=== PATIENT | male | born 1965 | race Caucasian/White ===

== ENCOUNTER 2018-07-23 15:53 | Outpatient (CLI) | payer BC ==
--- NOTE | 2018-07-23 18:18 | RAD ---
LUMBAR SPINE FOUR VIEWS: 07/23/18 HISTORY: Low back pain x25 years. COMPARISON: None. FINDINGS: Five lumbar type vertebral bodies. Vertebral height is maintained. There is no fracture. Vacuum disc phenomenon and moderate to severe loss of disc space height at L5-S1. Mild degenerative changes of th e thoracolumbar junction. In the neutral position, no spondylolisthesis. No abnormal motion on extension or flexion. IMPRESSION: Vacuum disc phenomenon at L5-S1. POS: MIC
== END 2018-07-23 15:54 | disposition home or self-care (01) ==
LOC: TBSIIMAG 15:53
PROVIDERS: ATTEND Surgery
DX: M54.5 Low back pain (principal); M51.37 Other intervertebral disc degeneration, lumbosacral region
CPT/HCPCS: 72110

== ENCOUNTER 2018-09-29 08:20 | Outpatient (CLI) | payer BC ==
[2018-09-29 09:37] LABS: Hemoglobin 14.2 g/dL (14.0-18.0); Mean Corpuscular HGB CONC 33.1 g/dL (32.0-36.0); Mean Corpuscular Hemoglobin 31.1 pg (27.0-31.0); Mean Corpuscular Volume 93.9 fL (78.0-98.0); Mean Platelet Volume 7.6 fL (7.4-10.4); Platelet Count 255 thou/uL (130-400); RBC Distribution Width 12.6 % (11.5-14.5); Red Blood Cell (RBC) Count 4.56 mill/uL (4.70-6.10); White Blood Cell (WBC) Count 5.7 thou/uL (4.8-10.8)
[2018-09-29 09:53] LABS: Anion Gap 11 mmol/L (10-20); BUN (Urea Nitrogen) 18 mg/dL (8.4-25.7); Calc. Creatinine Clearance 0 mL/min (70-130); Calcium 9.4 mg/dL (7.8-10.44); Carbon Dioxide 28 mmol/L (22-29); Chloride 106 mmol/L (98-107); Estimated GFR-MDRD Greater than 90; Glucose 73 mg/dL (70-105); PTT 27.2 SEC (22.9-36.1); Prothrombin Time 12.9 SEC (12.0-14.7); Sodium 141 mmol/L (136-145)
== END 2018-09-29 08:21 | disposition home or self-care (01) ==
LOC: LABBT 08:20
PROVIDERS: ATTEND Surgery
DX: Z01.818 Encounter for other preprocedural examination (principal); M54.16 Radiculopathy, lumbar region; M48.061 Spinal stenosis, lumbar region without neurogenic claudication
CPT/HCPCS: 80048; 85027; 85610; 85730; 93005; 93010

== ENCOUNTER 2018-10-03 09:55 | Day surgery (SDC) | payer BC ==
[2018-09-29 08:30] VITALS: BMI 36.3
[2018-10-03] MEDS ORDERED: Levofloxacin 500 mg/D5W 100 ml Premix Bag ONE (12:23)
[2018-10-03] MEDS ORDERED: Clindamycin/D5W 900 mg/50 ml Premix Bag ONE (12:24)
[2018-10-03] MEDS ORDERED: Midazolam HCl 2 mg/2 ml Vial ONE (12:35)
[2018-10-03] MEDS ORDERED: Morphine 2 MG/ML SYRINGE ONE (12:35)
[2018-10-03] MEDS ORDERED: Bacitracin Zinc Ointment 30 gm TUBE ONE (13:09)
[2018-10-03] MEDS ORDERED: Sodium Chloride 0.9% 10 ML ONE (13:09)
[2018-10-03] MEDS ORDERED: Thrombin 5000 UNITS/5 ML VIAL ONE (13:09)
[2018-10-03] MEDS ORDERED: Fentanyl 100 MCG/2 ML VIAL ONE ×5 (13:13→18:23)
[2018-10-03] MEDS ORDERED: Fleet Enema 133 ML BOT PR PRN (16:45)
[2018-10-03] MEDS ORDERED: Milk Of Magnesia 30 ML UDCUP PO PRN (16:45)
[2018-10-03] MEDS ORDERED: Acetaminophen 325 MG TAB PO PRN (16:45)
[2018-10-03] MEDS ORDERED: Bisacodyl 10 MG SUPP PR PRN (16:45)
[2018-10-03] MEDS ORDERED: Promethazine HCl 25 MG/ML VIAL IM PRN ×2 (16:45→17:30)
[2018-10-03] MEDS ORDERED: Mag-Al 1200 mg/1200 mg/30 ML UDCUP PO PRN (16:45)
[2018-10-03] MEDS ORDERED: Ondansetron HCl/PF 4 MG/2 ML Vial IVP PRN (17:30)
[2018-10-03] MEDS ORDERED: Promethazine HCl 25 MG/ML VIAL SLOW IVP PRN (17:30)
[2018-10-03] MEDS: traMADol HCl 50 MG TAB PO PRN (19:53)
[2018-10-03] MEDS: Acetaminophen/Codeine 30-300mg Tablet PO PRN (19:53)
[2018-10-03] MEDS: Sodium Chloride 0.9% 1,000 ML IV SCH (19:57)
[2018-10-03] MEDS: Metoprolol Tartrate 25 MG TAB PO SCH (20:31)
[2018-10-03] MEDS: Clindamycin/D5W 900 MG in Premix Bag 1 BAG IVPB SCH (20:31)
[2018-10-03] MEDS ORDERED: Lorazepam 1 MG TAB PO SCH (21:00)
[2018-10-03] MEDS ORDERED: PHENYLEPHRINE-NS 100 MCG/ML 10 ML SYRINGE ONE (21:37)
[2018-10-03] MEDS ORDERED: Metoclopramide HCl 10 MG/2 ML VIAL ONE (21:37)
[2018-10-03] MEDS ORDERED: PROPOFOL 200 MG/20 ML VIAL ONE (21:37)
[2018-10-03] MEDS ORDERED: Ondansetron PF 4 MG/2 ML Vial ONE (21:37)
[2018-10-03] MEDS ORDERED: Dexamethasone 20 MG/5 ML VIAL ONE (21:37)
[2018-10-03] MEDS ORDERED: Lidocaine 1% PF 5 ML VIAL ONE (21:37)
[2018-10-03] MEDS ORDERED: Succinylcholine Chloride 20 MG/ML 10 ml SYRINGE FS ONE (21:37)
[2018-10-03] MEDS ORDERED: ePHEDrine/0.9% NaCl/PF SYRINGE 50 mg/10 ml ONE (21:37)
[2018-10-03] MEDS ORDERED: Glycopyrrolate 0.2 MG/ML 5 ML SYRINGE ONE (21:37)
[2018-10-03] MEDS ORDERED: Naloxone HCl 0.4 mg/ml Vial ONE (21:37)
[2018-10-03] MEDS: Morphine 4 MG/ML VIAL SLOW IVP PRN (23:19)
[2018-10-04] MEDS: Acetaminophen/Codeine 30-300mg Tablet PO PRN ×2 (00:09→06:09)
[2018-10-04] MEDS: HYDROcodone/Acetaminophen 7.5/325 mg Tablet PO PRN ×3 (00:10→08:05)
[2018-10-04] MEDS: traMADol HCl 50 MG TAB PO PRN (03:36)
[2018-10-04] MEDS: Morphine 4 MG/ML VIAL SLOW IVP PRN (04:15)
[2018-10-04] MEDS: Clindamycin/D5W 900 MG in Premix Bag 1 BAG IVPB SCH (06:09)
[2018-10-04] MEDS: Sodium Chloride 0.9% 1,000 ML IV SCH (06:09)
[2018-10-04 07:29] VITALS: BP 124/71; TEMP 97.9
[2018-10-04] MEDS: Metoprolol Tartrate 25 MG TAB PO SCH (08:05)
[2018-10-04] MEDS ORDERED: Potassium Chloride 8 MEQ TAB PO SCH (09:00)
[2018-10-04] MEDS ORDERED: Lisinopril/Hydrochlorothiazide 20/25 mg Tablet PO SCH (09:00)
[2018-10-04] MEDS ORDERED: Venlafaxine HCl XR 150 MG CAP PO SCH (09:00)
--- NOTE | 2018-10-04 11:59 | PRG ---
DATE OF SERVICE: 10/04/2018 Mr. Elizabeth is postop day 1 from L4-L5 right-sided diskectomy and left L5-S1 hemilaminotomy, foraminotomy, and diskectomy. He is doing well with improvement in his leg pain. He is mobilizing with good strength. We will plan on dismissal. We went over both intra and postoperative issues. Job ID: [id number]
--- NOTE | 2018-10-04 13:16 | OP ---
DATE OF PROCEDURE: 10/03/2018 MANUFACTURING ENGINEERING DIRECTOR: Asad Hong PA-C. PREPROCEDURE DIAGNOSES: Lumbar stenosis L4-L5 with right L4-L5 disk extrusion, left L5-S1 disk extrusion with left S1 radiculopathy. POSTPROCEDURE DIAGNOSES: Lumbar stenosis L4-L5 with right L4-L5 disk extrusion, left L5-S1 disk extrusion with left S1 radiculopathy. PROCEDURES PERFORMED: 1. L4-L5 laminectomy, partial facetectomy, and foraminotomy with right-sided L4-L5 diskectomy. 2. Left L5-S1 hemilaminotomy, foraminotomy, and diskectomy. 3. Use of operative microscope for microdissection. DESCRIPTION OF PROCEDURE: After informed consent was obtained from the patient, the patient was brought to OR. Proper patient pause and identification were carried out. He was placed under excellent general endotracheal anesthesia and positioned prone on the OR table. All appropriate points were padded. We identified the L4, L5, and S1 dorsal spines. A linear ike was made over this area. This region was sterilely cleansed, prepared, and draped. After proper patient pause and identification were carried out, L4-L5 region was then exposed. Laminectomy was performed with right-sided L4-L5 diskectomy and excellent decompression of right L5 nerve root. We then turned our attention to the left L5-S1 segment. Hemilaminotomy, foraminotomy, and diskectomy were performed there. Use of operative microscope was used for microdissection. Copious irrigation occurred throughout and maximized hemostasis well. We then closed the wound in anatomic layers following sprinkling of vancomycin powder. The patient then emerged from anesthesia. Job ID: [id number]
== END 2018-10-04 11:41 | disposition home or self-care (01) ==
LOC: SDC 09:55 → SURG B 16:45 → SDC 10-04 11:41
PROVIDERS: ATTEND Surgery
PROC: 01NB0ZZ Release Lumbar Nerve, Open Approach (ICD-10-PCS; principal; 2018-10-04)
PROC: 0SB20ZZ Excision of Lumbar Vertebral Disc, Open Approach (ICD-10-PCS; principal; 2018-10-04)
DX: M48.061 Spinal stenosis, lumbar region without neurogenic claudication (principal); M51.26 Other intervertebral disc displacement, lumbar region; M51.17 Intervertebral disc disorders with radiculopathy, lumbosacral region; Z79.82 Long term (current) use of aspirin; Z79.899 Other long term (current) drug therapy; Z91.048 Other nonmedicinal substance allergy status
CPT/HCPCS: 76001; 96374; J0131; J1100; J1956; J2001; J2250; J2270; J2310; J2405; J2704; J2765; J3010; J3370; J3490

== ENCOUNTER 2018-10-04 18:38 | Observation (INO) | payer BC ==
[2018-10-04] MEDS ORDERED: Ketorolac Tromethamine 30 MG/ML VIAL ONE (21:37)
[2018-10-04] MEDS ORDERED: Milk Of Magnesia 30 ML UDCUP PO PRN (22:12)
[2018-10-04] MEDS ORDERED: Mag-Al 1200 mg/1200 mg/30 ML UDCUP PO PRN (22:12)
[2018-10-04] MEDS ORDERED: Ondansetron PF 4 MG/2 ML Vial IVP PRN (22:12)
[2018-10-04] MEDS ORDERED: Bisacodyl 10 MG SUPP PR PRN (22:12)
[2018-10-04] MEDS ORDERED: Fleet Enema 133 ML BOT PR PRN (22:12)
[2018-10-04] MEDS ORDERED: Sodium Chloride 0.9% 1,000 ML IV SCH (22:15)
[2018-10-04] MEDS: Ketorolac Tromethamine 30 MG/ML VIAL IVP SCH (23:22)
[2018-10-04] MEDS: Acetaminophen 650 MG in Premix Bag 1 BAG IVPB SCH (23:22)
--- NOTE | 2018-10-05 00:29 | HP ---
This is a 30-minute initial patient evaluation, of which greater than 50% of the exam was spent in counseling and coordinating the patient's care. Remainder of the exam was spent in reviewing the patient's medical records and formulation of treatment plan. CHIEF COMPLAINT: Slurred speech with dizziness. HISTORY OF PRESENT ILLNESS: Mr. Elizabeth is a 53-year-old male, who re-presented to [facility] for the above complaints. The patient had lumbar spine surgery with Dr. Andersen yesterday and was discharged earlier today. Apparently, when he was picking up his postoperative medications, he states that he was told that he was able to take tizanidine, tramadol, and Tylenol with codeine at the same time. He did this with dinner and subsequently began to feel lightheaded, had several episodes of diarrhea and slurred speech. He states he did also feel slight amount of chest pain. As these did not improve and his level of consciousness was deteriorating, he called 911 and was subsequently emergently brought to [facility]. Currently, his oxygen level is normal. He does have some hypotension, although the last blood pressure read in the room was in the 100s over 60s. His slurred speech has since resolved. He is able to provide the majority of his history. His accompanies him at bedside. The patient notes some incisional back pain and intermittent leg pain similar to what he had postoperatively, but states overall this has improved. PHYSICAL EXAMINATION: The patient is awake, alert, and appropriate. He no longer has any type of slurred speech during the exam. Follows commands equally in all 4 extremities. He has good strength in the bilateral lower extremities. He has intact sensation to light touch throughout. His pupils are equal, round, and reactive bilaterally. GCS currently is 15. IMPRESSION AND DIAGNOSES: Status post lumbar laminectomy on 10/03/2018 with slurred speech and decreased level of consciousness, likely narcotic-related. PLAN: I have discussed the patient's case with Dr. Andersen. I have discussed with the patient proper medication dosage and we will admit him overnight again for observation. We will keep an eye on his oxygenation level. He will hopefully be discharged tomorrow, but tonight we will limit his narcotics since he had some hypotension episodes. Overall, I think the patient will do very well in regard to low back surgery recovery as well as this likely narcotic overdose. Again, we will provide some fluids and adequate pain control for him and hopefully limit all his narcotics. Please call with any changes in the patient's neurologic status. Job ID: [id number]
[2018-10-05 01:14] VITALS: BMI 38.0
[2018-10-05] MEDS: Acetaminophen 650 MG in Premix Bag 1 BAG IVPB SCH (05:42)
[2018-10-05] MEDS: Ketorolac Tromethamine 30 MG/ML VIAL IVP SCH (05:43)
[2018-10-05] MEDS ORDERED: Venlafaxine HCl XR 150 MG CAP PO SCH (09:00)
[2018-10-05] MEDS ORDERED: Metoprolol Tartrate 25 MG TAB PO SCH (09:00)
[2018-10-05] MEDS ORDERED: Lisinopril/Hydrochlorothiazide 20/25 mg Tablet PO SCH (09:00)
[2018-10-05] MEDS ORDERED: Potassium Chloride 8 MEQ TAB PO SCH (09:00)
[2018-10-05 11:45] VITALS: BP 127/77; TEMP 98.1
--- NOTE | 2018-10-05 12:41 | PRG ---
DATE OF SERVICE: DICTATING FOR: Good Andersen MD SUBJECTIVE: Mr. Elizabeth is on hospital day #1, having been readmitted for some altered mental status and slurred speech after taking several narcotics and muscle relaxant the same time. His slurred speech has now resolved. He has met criteria for discharge, as his blood pressure has remained within normal limits. Oxygen saturation has been at 96% on room air, and now his hypertension has resolved. He is afebrile. I have discussed appropriate narcotic and muscle relaxant usage, and I have asked him to avoid these as much as possible and again not to take them at the same time. If he can avoid taking any type of narcotics, that would be ideal, although he does know taking Magdalena with benadryl does not provide any type of sedation for him. Therefore, he was to use Tylenol, Advil, Magdalena with benadryl as directed and . Otherwise, he has good strengths in bilateral lower extremities with intact sensation to light touch throughout. Again, he will keep his followup appointment with our office as scheduled and understands to call the office with questions or concerns. He will be discharged today. Job ID: [id number]
== END 2018-10-05 11:45 | disposition home or self-care (01) ==
LOC: ERS 18:38 → SURG B 22:12
PROVIDERS: ADMIT Surgery; ATTEND Surgery
DX: I95.81 Postprocedural hypotension (principal); R47.81 Slurred speech; Z79.82 Long term (current) use of aspirin; Z79.899 Other long term (current) drug therapy; Z91.09 Other allergy status, other than to drugs and biological substances; Z98.890 Other specified postprocedural states
CPT/HCPCS: 93005; 94760; 96361; 96374; 96375; 96376; G0378; J0131; J1885

== ENCOUNTER 2020-09-24 17:53 | Observation (INO) | payer BC ==
[2020-09-24] MEDS ORDERED: HYDROmorphone 0.5 MG/0.5 ML SYRINGE ONE ×2 (18:45→23:16)
[2020-09-24 19:15] LABS: Bilirubin Negative (Negative); Blood, Urine Negative (Negative); Clarity Clear (Clear); Glucose, Urine (Dipstick) Normal (Negative); Ketone, Urine Negative (Negative); Leukocyte Negative Leu/uL (Negative); Nitrite Negative (Negative); Protein, Urine (Dipstick) 20 mg/dL (Neg-Trace); Specific Gravity, Urine 1.037 (1.002-1.036); pH, Urine 7.5 (5.0-9.0)
[2020-09-24] MEDS ORDERED: cloNIDine 0.1 MG TAB PO PRN (20:02)
[2020-09-24] MEDS ORDERED: Morphine 2 MG/ML VIAL SLOW IVP PRN (20:02)
[2020-09-24] MEDS ORDERED: Acetaminophen 325 MG TAB PO PRN (20:02)
[2020-09-24] MEDS ORDERED: Ondansetron PF 4 MG/2 ML Vial IVP PRN (20:02)
[2020-09-24] MEDS ORDERED: Promethazine HCl 12.5 MG in Sodium Chloride 0.9% 50 ML IVPB PRN (20:02)
[2020-09-24] MEDS ORDERED: Labetalol HCl 100 MG/20 ML VIAL SLOW IVP PRN (20:02)
[2020-09-24] MEDS ORDERED: Guaifenesin DM 100-10/5 ML UDCUP PO PRN (20:02)
[2020-09-24] MEDS ORDERED: Naloxone HCl 0.4 mg/ml Vial IV PRN (20:38)
[2020-09-24] MEDS ORDERED: HYDROmorphone 0.5 MG/0.5 ML SYRINGE SLOW IVP PRN (20:38)
[2020-09-24] MEDS ORDERED: Methocarbamol 1 GM in Sodium Chloride 0.9% 100 ML IVPB PRN (20:39)
[2020-09-24] MEDS ORDERED: Morphine 4 MG/ML VIAL SLOW IVP PRN (20:39)
[2020-09-24] MEDS ORDERED: ALPRAZolam 0.25 MG TAB PO PRN (20:43)
--- NOTE | 2020-09-24 20:44 | PDOC.HHP ---
Hospitalist HPI - History of Present Illness Back pain History of Present Illness: Patient is a 55 year old male with PMH HTN, atrial fibrillation, disk disease w/ history of spinal surgery who presents as ED to ED transfer from [place] to ED for intractable back pain. # intractable back pain # history of disk disease w/ distant spinal surgery by Dr Andersen # severe right neural foraminal narrowing, moderate left neuroforaminal narrowing, mild spinal canal narrowing, moderate to severe bilateral neural foraminal narrowing at L5-S1 secondary to endplates osteophyte formation, mild degenerative changes to the vertebral discs above L4-5 - patient with progressive groin/leg pain and numbness and MRI w/ signs of disk disease and spinal cord narrowing, went to ED 4 times this week, patient has had a CT lumbar spine, CT a/p stone protocol, MRI of L spine. The MRI revealed right posterior central disc extrusion causing severe right neural foraminal narrowing amongst numerous other spinal findings. bladder scan in ED negative for retention. His pain is improved mostly after dilaudid. Neurosurgery consulted by ED and will follow patient with us as consult service. Patient transferred here from [place] [facility]. - admit to telemetry - start scheduled toradol/gabapentin and PRN norco, robaxin, morphine, dilaudid for breakthrough if needed - start empiric decadron - PT/OT # atrial fibrillation - medications changed last few weeks, now on multaq, toprol XL and 325mg asa for atrial fibrillaiton, monitor on telemetry and follow final med rec to ensure doses of medications are correct # HTN - resume home medications once med rec is complete, PRN medications ordered DVT/GI ppx Hospitalist ROS - Review of Systems Constitutional: denies: fever, chills, sweats, weakness, malaise, other Eyes: denies: pain, vision change, conjunctivae inflammation, eyelid inflammation, redness, other ENT: denies: ear pain, ear discharge, nose pain, nose discharge, nose congestion, mouth pain, mouth swelling, throat pain, throat swelling, other Respiratory: denies: cough, dry, shortness of breath, hemoptysis, SOB with excertion, pleuritic pain, sputum, wheezing, other Cardiovascular: denies: chest pain, palpitations, orthopnea, paroxysmal noc. dyspnea, edema, light headedness, other Gastrointestinal: denies: nausea, vomiting, abdominal pain, diarrhea, constipation, melena, hematochezia, other Genitourinary: denies: dysuria, frequency, incontinence, hematuria, retention, other Musculoskeletal: reports: back pain, leg pain Neurological: reports: numbness (RLE, see HPI) All other systems reviewed; all pertinent +/- noted in HPI/Subj - Medication Medications: LORazepam oral Sat Sep 24, 2020 18:22 BIANKA Jeffries Elizabeth TABLET : Strength - 1 mg : ORAL Patient Dose: 1 mg Oral every 6 hours PRN. venlafaxine Sat Sep 24, 2020 18:22 BIANKA Jeffries Elizabeth TABLET : Strength - 100 mg : ORAL Patient Dose: 150 mg Oral once a day. lisinopril-hydrochlorothiazide Sat Sep 24, 2020 18:22 BIANKA Jeffries Elizabeth TABLET : Strength - 20 mg-25 mg : ORAL Patient Dose: 1 tab(s) Oral once a day. Benadryl oral Sat Sep 24, 2020 18:23 BIANKA Jeffries Elizabeth CAPSULE : Strength - 25 mg : ORAL Patient Dose: 25 mg Oral. acetaminophen-codeine Sat Sep 24, 2020 18:23 BIANKA Jeffries Elizabeth TABLET : Strength - 300 mg-60 mg : ORAL Patient Dose: Unknown. Ultram Sat Sep 24, 2020 18:23 BIANKA Jeffries Elizabeth TABLET : Strength - 50 mg : ORAL Patient Dose: Unknown. meTOPROLOL tartrate oral Sat Sep 24, 2020 20:19 BIANKA Sandoval Miranda TABLET : Strength - 100 mg : ORAL Patient Dose: 25 mg Oral once a day (at bedtime). Multaq Sat Sep 24, 2020 20:19 BIANKA Sandoval Miranda tablet : Strength - 400 mg : ORAL Patient Dose: 1 2 times a day. Hospitalist History - Past Medical History Psych: reports: Anxiety Musculoskeletal: reports: Chronic low back pain, Osteoarthritis Renal/: reports: Other (History of kidney stones) Endocrine: reports: Other (Obesity) Other Medical History: HTN atrial fibrillation - Past Surgical History Past Surgical History: reports: Other (Multiple knee surgeries bilaterally, kidney stone removal) Other Surgical History: Left ankle surgery LEFT KNEE X 5 RIGHT KNEE X4. Back surgery 10/03/18.verified 09-22-2020. - Family History Family History: reports: no pertinent history - Social History Alcohol: reports: Occassional Drugs: reports: none - Exam General Appearance: NAD, awake alert Eye: PERRL, anicteric sclera ENT: normocephalic atraumatic, no oropharyngeal lesions, moist mucosa Neck: supple, symmetric, no JVD, no thyromegaly, no lymphadenopathy, no carotid bruit Heart: RRR, no murmur, no gallops, no rubs, normal peripheral pulses Respiratory: CTAB, no wheezes, no rales, no ronchi, normal chest expansion, no tachypnea, normal percussion Gastrointestinal: soft, non-tender, non-distended, normal bowel sounds, no palpable masses, no hepatomegaly, no splenomegaly, no bruit Extremities: no cyanosis, no clubbing, no edema Skin: normal turgor, no lesions, no rashes Neurological: cranial nerve grossly intact, normal sensation to touch, no weakness, no focal deficits, no new deficit Neurological - other findings: sensation RLE reduced to light and heavy touch. LLE/BUE wnl, rflx 2+ equal Musculoskeletal: normal tone, normal strength, no muscle wasting Psychiatric: normal affect, normal behavior, A&O x 3 Hospitalist Results - Labs Lab results: Urine Ketones Negative mg/dL (Negative) 09/24/20 18:40 Urine Blood Negative (Negative) 09/24/20 18:40 Urine Nitrite Negative (Negative) 09/24/20 18:40 Ur Leukocyte Esterase Negative Shekhar/uL (Negative) 09/24/20 18:40 Additional comment: VITAL SIGNS Sat Sep 24, 2020 20:33 BIANKA Alvarez Taylor BP: 129/85 MAP: 99 Pulse: 81 Resp: 15 Pain: 7 O2 sat: 95 on (Room Air) Time: 09/24/2020 20:33. MRI from 09/23/2020 IMPRESSION: 1. Postsurgical changes status post L5 laminectomy. No obvious acute postsurgical complication. 2. Right posterior central disc extrusion causing severe right neural foraminal narrowing, moderate left neuroforaminal narrowing, and only mild spinal canal narrowing. 3. Moderate to severe bilateral neural foraminal narrowing at L5-S1 secondary to endplates osteophyte formation, most severe on the right. 4. Mild degenerative changes to the vertebral discs above L4-5 with mild to moderate neuroforaminal narrowing and at most minimal spinal canal narrowing. Hospitalist H&P A/P - Plan Plan: Patient is a 55 year old male with PMH HTN, atrial fibrillation, disk disease w/ history of spinal surgery who presents as ED to ED transfer from [place] to ED for intractable back pain. Patient reports that he has had pain in back which has been worsening for a few weeks, however this week he noted concerning significant RLE numbness mostly in thigh region. He denies BBI but has difficulty urinating due to pain. He has seen Dr Andersen in the past for multiple spinal surgeries and notified their office of new symptoms. He has been to the ED 4 times in last few days, however pain has not responded to prednisone started yesterday nor ibuprofen/tylenol 3 or muscle relaxers he was prescribed. His reports pain was so bad he was forced to lie down and was writhing in pain in groin area mostly. He has afib, and medications were changed two weeks ago, he is now on toprol XR and multaq. Grader Operator is Dr Ramos. He takes ASA 325mg daily for afib stroke prevention. In process of going to [facility] x 4 this week, patient has had a CT lumbar spine, CT a/p stone protocol, MRI of L spine. The CTs did not show acute findings, the MRI revealed right posterior central disc extrusion causing severe right neural foraminal narrowing amongst numerous other spinal findings. bladder scan in ED negative for retention. His pain is improved mostly after dilaudid. Neurosurgery consulted by ED and will follow patient with us as consult service. Patient transferred here from [place] ED.
[2020-09-24] MEDS ORDERED: Dronedarone HCl 400 MG TAB PO SCH (21:00)
[2020-09-24] MEDS ORDERED: Metoprolol Tartrate 25 MG TAB PO SCH (21:00)
[2020-09-24] MEDS ORDERED: Famotidine 20 MG TAB PO SCH (21:00)
[2020-09-24] MEDS ORDERED: Ketorolac Tromethamine 30 MG/ML VIAL ONE (21:23)
[2020-09-24] MEDS: Ketorolac Tromethamine 30 MG/ML VIAL IVP SCH (21:34)
[2020-09-24] MEDS ORDERED: Metoprolol Tartrate 25 MG TAB ONE (21:43)
[2020-09-24] MEDS ORDERED: Dexamethasone 4 mg/ml Vial ONE (21:43)
[2020-09-24] MEDS ORDERED: Heparin 10,000 UNITS/ 10 ML VIAL ONE (21:43)
[2020-09-24] MEDS: Heparin 5,000 UNITS/ML VIAL SC SCH ×2 (21:46→22:35)
[2020-09-24] MEDS ORDERED: HYDROcodone/Acetaminophen 5/325 mg Tablet ONE (21:49)
[2020-09-24] MEDS: Dexamethasone 4 mg/ml Vial SLOW IVP SCH (21:58)
[2020-09-24] MEDS: Gabapentin 300 MG CAP PO SCH (21:58)
[2020-09-24] MEDS: HYDROcodone/Acetaminophen 5/325 mg Tablet PO PRN (22:00)
[2020-09-24] MEDS: Senokot S 8.6-50 MG TAB PO SCH (22:00)
--- NOTE | 2020-09-25 02:09 | CON ---
DATE OF CONSULTATION: 09/24/2020 HISTORY OF PRESENT ILLNESS: Mr. Elizabeth has been to the emergency room 5 times for worsening back pain. An MRI was done at the [facility] on 09/23, in which he spoke to Romana who discussed his MRI with him. His MRI indicated a large right paracentral disk extrusion with cephalad migration at L2-3, and a large right paracentral disk extrusion at L4-5. He was scheduled for a tele medicine appointment on Saturday, 09/26 with Romana at [facility]. Mr. Elizabeth was in too much pain for the last 4 days that he has been coming to the emergency room. He has been transferred today from the [facility] to [facility] due to pain. Medicine admitted him for pain management and Neurosurgery was consulted. There are no available beds in Tele and patient is monitored due to being\ on Dilaudid for pain control. CURRENT MEDICATIONS: 1. Co Q10 100 mg. 2. . 3. Vitamin C. 4. Lutein. 5. Aspirin 81 mg. 6. Tizanidine 4 mg. 7. Tramadol 50 mg. 8. Metoprolol 25 mg. 9. Lisinopril with hydrochlorothiazide 20/25 mg. 10. Venlafaxine 150 mg. 11. Lorazepam 1 mg. ALLERGIES: NO KNOWN DRUG ALLERGIES. PAST MEDICAL HISTORY: Hypertension, chronic knee and back issues. PAST SURGICAL HISTORY: Multiple bilateral knee, meniscus tear, lumbar laminectomy L4-5, L5-S[place] [address] Andersen. FAMILY HISTORY: Father alive. Mother alive, diagnosed with diabetes, hypertension, heart disease. Spouse alive. SOCIAL HISTORY: Nonsmoker. Denies alcohol or illicit drug use. REVIEW OF SYSTEMS: CONSTITUTIONAL: Denies fever, chills. ENT: Denies change in vision or hearing. CARDIAC: Denies chest pain, shortness of breath, diaphoresis. PULMONARY: Denies shortness of breath, cough, hemoptysis. GI: Denies abdominal pain, nausea, vomiting, diarrhea, change in stool formation and consistency. : Denies trouble with urination, frequency of urination, bloody urine. SKIN: Denies skin rash, bruising, bleeding, skin masses. MUSCULOSKELETAL: As per history of present illness. NEUROLOGICAL: As per history of present illness. PSYCHOLOGICAL: As per history of present illness. PHYSICAL EXAMINATION: VITAL SIGNS: Weight 300, height 73 inches, BMI 39.58. BP 120/74, pulse 82, temperature 98.3. HEENT: Pupils are equal. Extraocular movements are intact. NECK: Normal, soft, and supple. No masses are noted. Range of motion is intact and nonpainful. NEUROLOGICAL: Awake, alert, and oriented x3. Memory, attention, fund of knowledge normal, and language are normal. Cranial nerves are grossly intact. Lower extremity strength free, active range of motion on all extremities. No focal motor weakness. No reflex asymmetry. There is some new numbness in the right thigh region. Denies bladder or bowel incontinence. PLAN: Patient was offered to keep current appointment with [facility] on Saturday. Pain control with physical therapy and spinal epidural injections. He was also offered a Laminectomy at L2-3 and discectomy. It is unclear if elective surgery can be done today or tomorrow. Mr Elizabeth selected to have elective surgery. We will check for OR availability today. Job ID: [id number] MTDD
[2020-09-25] MEDS ORDERED: Morphine 4 MG/ML VIAL ONE (02:14)
[2020-09-25] MEDS ORDERED: Ketorolac Tromethamine 30 MG/ML VIAL ONE ×3 (02:15→09:26)
[2020-09-25] MEDS ORDERED: Dexamethasone 4 mg/ml Vial ONE ×2 (02:15→08:49)
[2020-09-25 02:35] LABS: SARS-CoV-2 MS2 Positive; SARS-CoV-2 N Gene Negative; SARS-CoV-2 S Gene Negative; SARS-CoV-2 by NAA Not Detected (NotDetected); SARS-CoV-2 orf1ab Negative
[2020-09-25] MEDS: Dexamethasone 4 mg/ml Vial SLOW IVP SCH ×4 (03:02→20:51)
[2020-09-25] MEDS: Ketorolac Tromethamine 30 MG/ML VIAL IVP SCH ×3 (03:02→17:21)
[2020-09-25] MEDS ORDERED: HYDROmorphone 0.5 MG/0.5 ML SYRINGE ONE ×3 (03:22→11:41)
[2020-09-25] MEDS ORDERED: HYDROmorphone 0.5 MG/0.5 ML SYRINGE SLOW IVP SCH (03:30)
[2020-09-25 06:59] LABS: #Lymphocytes 0.8 thou/uL (1.20-3.40); #Monocytes 0.3 thou/uL (0.11-0.59); %Basophils 0.1 % (0.0-1.0); %Monocytes 2.5 % (0.0-10.0); %Neutrophils 90.3 % (42.0-75.0); Hemoglobin 14.3 g/dL (14.0-18.0); Mean Corpuscular HGB CONC 33.5 g/dL (32.0-36.0); Mean Corpuscular Hemoglobin 31.7 pg (27.0-31.0); Mean Corpuscular Volume 94.8 fL (78.0-98.0); Mean Platelet Volume 7.5 fL (7.4-10.4); Platelet Count 251 thou/uL (130-400); RBC Distribution Width 12.3 % (11.5-14.5); Red Blood Cell (RBC) Count 4.51 mill/uL (4.70-6.10); White Blood Cell (WBC) Count 11.1 thou/uL (4.8-10.8)
[2020-09-25] MEDS ORDERED: HYDROmorphone 0.5 MG/0.5 ML SYRINGE SLOW IVP PRN (07:00)
[2020-09-25 07:21] LABS: Anion Gap 14 mmol/L (10-20); BUN (Urea Nitrogen) 32 mg/dL (8.4-25.7); Calc. Creatinine Clearance 0 mL/min (70-130); Carbon Dioxide 29 mmol/L (22-29); Chloride 104 mmol/L (98-107); Glucose 111 mg/dL (70-105); Magnesium 2.3 mg/dL (1.6-2.6); Potassium 4.2 mmol/L (3.5-5.1); Sodium 143 mmol/L (136-145)
[2020-09-25 08:31] VITALS: BMI 38.9
[2020-09-25] MEDS: Dronedarone HCl 400 MG TAB PO SCH ×2 (08:46→17:42)
--- NOTE | 2020-09-25 09:19 | PRG ---
DATE OF SERVICE: 09/25/2020 I personally interviewed, examined the patient, agree with documentation of Eriberto Hollingsworth PA-C, dated 09/25/20. Briefly, Sumeet Elizabeth is a patient of Dr. Andersen'juanis. He is on the schedule for an appointment tomorrow. Nonetheless, he has been to emergency department around our community 4 to 5 times in the last week for pain control issues. He is familiar with the radicular pain related to L4-5 disk trouble and this is new and different. It radiates from the back to the anterior thigh. There is some burning in the anterior medial thigh and slight weakness of the thigh on the right side. This is so uncomfortable that he cannot stand and walk or care for himself at home. His quality of life is terrible and he does not want to wait through injections and therapy. When I see him this morning, Mr. Elizabeth seems anxious, but his vitals are stable. He has good strength and sensation throughout except the right hip flexor and the right quadriceps which are 4/5 compared to normal 5/5 strength on the left side. He also has numbness in L2 and L3 distribution in the right leg. Imaging (an MRI scan) suggest a new disk herniation at L2-3 that has migrated superiorly and is under the L2 nerve root and stretches the L3 nerve root on the right. He has a recurrent disk issue at L4-5, but the L5 nerve root seems to have plenty of room from his prior laminectomy to move around the disk and still leave the foramen reasonably well. There is evidence of prior surgery at L4-L5. I had a long discussion with Mr. Elizabeth and his . They do not feel that injections and therapy are manageable specially given the amount of pain he is in and the inability to care for himself at home. He is interested in surgical intervention. I told Mr. Elizabeth that Dr. Andersen or I could complete that surgical intervention for him during this hospitalization. We will see if the operating room is available today to treat him and if not, perhaps tomorrow. INFORMED CONSENT: I discussed indications, risks, benefits, alternatives to L2-3 laminectomy and L2-3 microdiskectomy. The risks discussed included, but were not limited to, bleeding, infection, CSF leak, nerve damage, paralysis, incontinence, wheelchair dependence, major blood vessel injury, cardiopulmonary complications, and . He understands the risks and wants to proceed. Mr. Elizabeth had a half glass of water at 7:30 a.m. He had subcu heparin at 10:30 p.m. last night. Job ID: [id number]
[2020-09-25] MEDS ORDERED: Glycopyrrolate 0.2 MG/ML 5 ML SYRINGE ONE (09:26)
[2020-09-25] MEDS ORDERED: Lidocaine 1% PF 5 ML VIAL ONE (09:26)
[2020-09-25] MEDS ORDERED: Ondansetron PF 4 MG/2 ML Vial ONE (09:26)
[2020-09-25] MEDS ORDERED: Dexamethasone 20 MG/5 ML VIAL ONE (09:26)
[2020-09-25] MEDS ORDERED: ePHEDrine 50 MG/ML VIAL ONE (09:26)
[2020-09-25] MEDS ORDERED: Rocuronium Bromide 10 MG/ML (10ML VIAL) ONE (09:26)
[2020-09-25] MEDS ORDERED: PROPOFOL 200 MG/20 ML VIAL ONE (09:26)
[2020-09-25] MEDS ORDERED: Fentanyl 100 MCG/2 ML VIAL ONE (11:41)
[2020-09-25] MEDS ORDERED: Dexmedetomidine 200 MCG/2 ML VIAL ONE (11:41)
[2020-09-25] MEDS ORDERED: Lidocaine 1% w/Epinephrine 1:100K 20 ML VIAL ONE (11:53)
[2020-09-25] MEDS ORDERED: Thrombin 5000 UNITS/5 ML VIAL ONE (11:53)
[2020-09-25] MEDS ORDERED: Bupivacaine PF 0.5% 30 ML VIAL ONE (11:53)
[2020-09-25] MEDS ORDERED: Sodium Chloride 0.9% 10 ML ONE (11:54)
[2020-09-25 12:23] LABS: PTT 23.3 sec (22.9-36.1); Prothrombin Time 13.2 sec (12.0-14.7)
[2020-09-25] MEDS ORDERED: HYDROmorphone 2 MG/ML VIAL SLOW IVP PRN (15:31)
[2020-09-25] MEDS ORDERED: Promethazine HCl 25 MG/ML VIAL IM PRN (15:31)
[2020-09-25] MEDS ORDERED: PACU-Morphine 4MG/ML VIAL SLOW IVP PRN (15:31)
[2020-09-25] MEDS ORDERED: Promethazine HCl 25 MG/ML VIAL SLOW IVP PRN (15:31)
[2020-09-25] MEDS ORDERED: Ondansetron HCl/PF 4 MG/2 ML Vial IVP PRN (15:31)
--- NOTE | 2020-09-25 16:23 | PDOC.HOSPP ---
- Subjective Encounter Date: 09/25/20 (f/u intractable back pain) Encounter Time: 16:21 Subjective: Pt is s/p surgery today for intractable back pain. He reports some pain in left leg post-op but states he is overall improved. He denies any problems right now. - Objective Vital Signs & Weight: Vital Signs (12 hours) Temp Pulse Resp BP Pulse Ox 09/25/20 09:01 100 09/25/20 09:00 98 F 63 16 141/88 H 100 Weight Weight 295 lb I&O: 09/24/20 09/25/20 09/26/20 06:59 06:59 06:59 Output Total 350 Balance -350 Result Diagrams: 09/25/20 06:50 09/25/20 06:50 Hospitalist ROS - Medication Medications: Active Medications Generic Name Dose Route Start Last Admin Trade Name Freq PRN Reason Stop Dose Admin Hydrocodone Bitart/Acetaminophen 1 tab 09/24/20 20:02 09/24/20 22:00 Hydrocodone/Acetaminophen 5/325 Mg Tablet PO 1 tab Q4H PRN Administration Moderate Pain (4-6) Dexamethasone 4 mg 09/24/20 21:00 09/25/20 08:52 Dexamethasone 4 Mg/Ml Vial SLOW IVP 4 mg 0300,0900,1500,2100 BLANE Administration Dronedarone 400 mg 09/25/20 08:00 09/25/20 08:46 Dronedarone Hcl 400 Mg Tab PO 400 mg BID-WM BLANE Administration Gabapentin 300 mg 09/24/20 21:00 09/24/20 21:58 Gabapentin 300 Mg Cap PO 300 mg BID BLANE Administration Metoprolol Succinate 25 mg 09/24/20 22:04 09/24/20 22:21 Metoprolol Succinate Xl 25 Mg Tab PO 25 mg QPM-WM BLANE Administration Pantoprazole Sodium 40 mg 09/25/20 09:00 09/25/20 08:55 Pantoprazole 40 Mg Tab PO 40 mg DAILY BLANE Administration Senna/Docusate Sodium 1 tab 09/24/20 21:00 09/24/20 22:00 Senokot S 8.6-50 Mg Tab PO 1 tab BID BLANE Administration - Exam General Appearance: NAD Heart: RRR, no murmur Respiratory: CTAB, no wheezes, no rales, no ronchi Gastrointestinal: soft, non-tender, non-distended, normal bowel sounds Psychiatric: normal affect Hosp A/P (1) Acute exacerbation of chronic low back pain Code(s): M54.5 - LOW BACK PAIN; G89.29 - OTHER CHRONIC PAIN Status: Acute (2) Paroxysmal atrial fibrillation Code(s): I48.0 - PAROXYSMAL ATRIAL FIBRILLATION Status: Chronic (3) Anxiety Code(s): F41.9 - ANXIETY DISORDER, UNSPECIFIED Status: Chronic (4) HTN (hypertension) Code(s): I10 - ESSENTIAL (PRIMARY) HYPERTENSION Status: Chronic Qualifiers: Hypertension type: essential hypertension Qualified Code(s): I10 - Essential (primary) hypertension (5) Obesity Code(s): E66.9 - OBESITY, UNSPECIFIED Status: Chronic - Plan s/p surgery for disk extrusion and foraminal narrowing - appreciate Neurosurgery consult - all pain meds and steroids per neurosurgery paroxysmal atrial fibrillation - continue metoprolol and multaq - no aspirin until cleared by Neurosurgery hypertension - home med (hctz/lisinopril) with hold parameters to avoid hypotension - monitor renal function anxiety - continue scheduled effexor - prn alprazolam dvt prophy - scd's gi prophy - protonix while on steroids code status full reviewed the plan of care with patient/, no questions or further needs at end of eval.
[2020-09-25] MEDS: Gabapentin 300 MG CAP PO SCH ×2 (17:21→20:51)
[2020-09-25] MEDS: Senokot S 8.6-50 MG TAB PO SCH ×2 (17:21→20:51)
[2020-09-25] MEDS: HYDROcodone/Acetaminophen 5/325 mg Tablet PO PRN ×2 (17:42→22:08)
--- NOTE | 2020-09-25 19:51 | OP ---
DATE OF PROCEDURE: 09/25/2020 MERCHANT MARINER: Eriberto Hollingsworth PA-C PREOPERATIVE INDICATION: Treat pain and prevent neurological deterioration. 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 PROCEDURES PERFORMED: Decompressive laminectomy with medial facetectomy, foraminotomy at L2-L3, right-sided microdiskectomy at L2-L3 operating microscope. PREOPERATIVE MEDICATIONS: Ancef 2 g IV. DRAIN NUMBER: Zero. DRAIN TYPE: None. DESCRIPTION OF PROCEDURE: The patient was brought to the operating room. General endotracheal anesthesia was induced. The patient was positioned prone on the Fito frame with appropriate padding for the chest and hips. A lateral fluoro radiograph was used to plan our incision above his previous lumbar incision. The lumbar skin was sterilely prepped and draped. We opened a midline incision with a 10 blade knife. We controlled bleeding with bipolar and monopolar cautery. We used monopolar cautery to dissect through subcutaneous tissues to the thoracodorsal fascia. We incised the fascia in the midline and reflected the paraspinal muscles off the spinous process of L2 and L3 as well as the laminae. We took a lateral fluoro radiograph to confirm the levels upon which we were operating. We then used an Adson rongeur to remove the spinous process of L2 and the top of the spinous process of L3. Kerrison rongeurs were used to fashion a laminectomy down the midline. We widened our laminectomy defect. When we were in line with the medial portion of the pedicles, we brought the operating microscope in the field. Under microscopic magnification and using microsurgical techniques, we gently retracted the thecal sac medially. There was a large acute intervertebral disk herniation on the right side stretching the L2 and L3 nerve roots. In fact, the dura was very stretched at the superior portion of our laminectomy. We continued our laminectomy all the way through the top of the L2 lamina. This gave us a slightly easier chance to retract the thecal sac. Here, we worked around the edge of the dura and removed a very large multiple disk fragments from the ventral epidural space under the axilla of the L2 nerve root under the common thecal sac and over the shoulder of the L3 nerve root. There is a disk protrusion at the interspace itself. There was small hole in the annulus. We reached through the hole and removed loose fragments of disk from the interspace and reduced the disk protrusion there. The remainder of the disk was firmly adherent to the endplates. We irrigated with bacitracin irrigation. We ensured that a Antonio ball probe could exit the L2 and the L3 nerve root foramen with the nerve root without any impingement. We irrigated once again with bacitracin irrigation. We waxed the bone edges. We controlled epidural bleeding with gentle bipolar cautery. We infused local anesthetic in the paraspinal muscles, and we closed in anatomical layers. This was a clean case, no contamination. Job ID: [id number]
[2020-09-25] MEDS ORDERED: Acetaminophen/Codeine 30-300mg Tablet PO PRN (20:20)
[2020-09-25] MEDS ORDERED: diphenhydrAMINE 25 MG CAP PO PRN (20:20)
[2020-09-25] MEDS ORDERED: Promethazine 25 MG TAB PO PRN (20:20)
[2020-09-25] MEDS ORDERED: traMADol HCl 50 MG TAB PO PRN (20:20)
[2020-09-25] MEDS ORDERED: Morphine 2 MG/ML VIAL SLOW IVP PRN (20:20)
[2020-09-25] MEDS ORDERED: Scopolamine 1.5 mg/72 hour Patch TD PRN (20:20)
[2020-09-25] MEDS ORDERED: Potassium Chloride 8 MEQ TAB PO SCH (20:45)
[2020-09-25] MEDS: CEFAZOLIN 2 GM in Premix Bag 1 BAG IVPB SCH ×2 (20:52→20:53)
[2020-09-25] MEDS: Baclofen 10 MG TAB PO SCH (21:30)
[2020-09-26] MEDS: HYDROcodone/Acetaminophen 5/325 mg Tablet PO PRN ×3 (02:17→10:39)
[2020-09-26] MEDS: Dexamethasone 4 mg/ml Vial SLOW IVP SCH ×2 (02:18→08:05)
[2020-09-26] MEDS: CEFAZOLIN 2 GM in Premix Bag 1 BAG IVPB SCH ×2 (04:33→04:34)
--- NOTE | 2020-09-26 07:23 | PRG ---
DATE OF SERVICE: Mr. Elizabeth is one day out from L2-3 laminectomy with a right-sided microdiskectomy. The pain radiating to the anterior thigh is gone. There is still some residual numbness. There may be some weakness in the hip flexors and quadriceps still, but he has gotten out of bed and walked. He feels much better than he did before surgery. The electronically recorded vital signs are stable. I do not find any new weakness or numbness. Mr. Elizabeth is ready for discharge today. We went over home going restrictions, followup arrangements, and wound care. He verbalizes understanding. Job ID: [id number]
[2020-09-26] MEDS ORDERED: Potassium Chloride 8 MEQ TAB PO SCH (08:00)
[2020-09-26] MEDS: Dronedarone HCl 400 MG TAB PO SCH (08:03)
[2020-09-26] MEDS: Senokot S 8.6-50 MG TAB PO SCH (08:03)
[2020-09-26] MEDS: Gabapentin 300 MG CAP PO SCH (08:04)
[2020-09-26] MEDS: Baclofen 10 MG TAB PO SCH (08:05)
[2020-09-26] MEDS ORDERED: Venlafaxine HCl XR 150 MG CAP PO SCH (09:00)
[2020-09-26] MEDS ORDERED: POTASSIUM GLUCONATE 90 MG PO SCH (09:00)
[2020-09-26] MEDS ORDERED: Lisinopril/Hydrochlorothiazide 20/25 mg Tablet PO SCH (09:00)
[2020-09-26 12:13] VITALS: BP 133/86; TEMP 97.5
== END 2020-09-26 12:37 | disposition home or self-care (01) ==
LOC: ERS 17:53 → ERHOLD 20:04 → SURG A 09-25 16:25
PROVIDERS: ADMIT Internal Medicine; ATTEND Family Medicine
PROC: 01NB0ZZ Release Lumbar Nerve, Open Approach (ICD-10-PCS; principal; 2020-09-25)
PROC: 0ST20ZZ Resection of Lumbar Vertebral Disc, Open Approach (ICD-10-PCS; 2020-09-25)
DX: M51.16 Intervertebral disc disorders with radiculopathy, lumbar region (principal); M48.07 Spinal stenosis, lumbosacral region; I10 Essential (primary) hypertension; I48.0 Paroxysmal atrial fibrillation; F41.9 Anxiety disorder, unspecified; F32.9 Major depressive disorder, single episode, unspecified; M19.90 Unspecified osteoarthritis, unspecified site; E66.9 Obesity, unspecified; Z68.38 Body mass index [BMI] 38.0-38.9, adult; Z79.82 Long term (current) use of aspirin; Z79.899 Other long term (current) drug therapy; Z88.0 Allergy status to penicillin; Z91.048 Other nonmedicinal substance allergy status; Z20.828 Contact with and (suspected) exposure to other viral communicable diseases
CPT/HCPCS: 36415; 76000; 80048; 81003; 83735; 85025; 85610; 85730; 87635; 96365; 96374; 96375; 96376; G0378; J0690; J1100; J1170; J1644; J1885; J2270; J2405; J2704; J2800; J3010; J3370; J3490; Q0163; S0020; U0003

== ENCOUNTER 2021-02-16 08:46 | Outpatient (CLI) | payer BC ==
[2021-02-16 12:48] LABS: Hemoglobin 14.1 g/dL (13.5-17.5); Mean Corpuscular HGB CONC 32.9 g/dL (32.0-36.0); Mean Corpuscular Hemoglobin 30.2 pg (27.0-33.0); Mean Corpuscular Volume 91.6 fl (81.2-95.1); Mean Platelet Volume 10.1 fl (7.4-10.4); Platelet Count 255 10x3/uL (150-450); RBC Distribution Width 13.2 % (11.5-14.5); Red Blood Cell (RBC) Count 4.67 10x6/uL (4.32-5.72); White Blood Cell (WBC) Count 4.6 10x3/uL (3.5-10.5)
[2021-02-16 12:50] LABS: INR-International Normal Ratio 0.9; PTT 25.2 sec (22.0-33.0); Prothrombin Time 10.5 sec (9.5-12.1)
[2021-02-16 13:35] LABS: Anion Gap 15 mmol/L (10-20); BUN (Urea Nitrogen) 18 mg/dL (8.4-25.7); Calc. Creatinine Clearance 0 mL/min (70-130); Calcium 8.8 mg/dL (7.8-10.44); Carbon Dioxide 26 mmol/L (22-29); Chloride 105 mmol/L (98-107); Glucose 96 mg/dL (70-105); Potassium 4.1 mmol/L (3.5-5.1); Sodium 142 mmol/L (136-145)
[2021-02-17 01:47] LABS: SARS-CoV-2 PCR by NAA Not Detected (NotDetected)
== END 2021-02-16 08:47 | disposition home or self-care (01) ==
LOC: LABBT 08:46
PROVIDERS: ATTEND Surgery
DX: Z01.818 Encounter for other preprocedural examination (principal); M51.16 Intervertebral disc disorders with radiculopathy, lumbar region; Z20.822 Contact with and (suspected) exposure to COVID-19
CPT/HCPCS: 80048; 85027; 85610; 85730; 87635; 93005; 93010; U0003; U0005

== ENCOUNTER 2021-02-21 07:43 | Day surgery (SDC) | payer BC ==
[2021-02-20 10:51] VITALS: BMI 38.6
[2021-02-21] MEDS ORDERED: Fentanyl 100 MCG/2 ML VIAL ONE ×4 (09:22→16:14)
[2021-02-21] MEDS ORDERED: Thrombin 5000 UNITS/5 ML VIAL ONE (09:40)
[2021-02-21] MEDS ORDERED: SUGAMMADEX SODIUM 500 MG/5 ML VIAL ONE (09:48)
[2021-02-21] MEDS ORDERED: Rocuronium Bromide 10 MG/ML (10ML VIAL) ONE (10:16)
[2021-02-21] MEDS ORDERED: Dexamethasone 20 MG/5 ML VIAL ONE (10:16)
[2021-02-21] MEDS ORDERED: Lidocaine 1% PF 5 ML VIAL ONE (10:16)
[2021-02-21] MEDS ORDERED: PHENYLEPHRINE-NS 100 MCG/ML 10 ML SYRINGE ONE (10:16)
[2021-02-21] MEDS ORDERED: Ondansetron PF 4 MG/2 ML Vial ONE ×2 (10:16→14:56)
[2021-02-21] MEDS ORDERED: PROPOFOL 200 MG/20 ML VIAL ONE (10:16)
[2021-02-21] MEDS ORDERED: Acetaminophen 325 MG TAB PO PRN (10:37)
[2021-02-21] MEDS ORDERED: traMADol HCl 50 MG TAB PO PRN (10:37)
[2021-02-21] MEDS ORDERED: Acetaminophen/Codeine 30-300mg Tablet PO PRN (10:37)
[2021-02-21] MEDS ORDERED: Lorazepam 1 MG TAB PO PRN (10:38)
[2021-02-21] MEDS ORDERED: Morphine Sulfate 2 MG/ML SYRINGE SLOW IVP PRN (12:07)
[2021-02-21] MEDS ORDERED: Ondansetron HCl/PF 4 MG/2 ML Vial IVP PRN (12:07)
[2021-02-21] MEDS ORDERED: Promethazine HCl 25 MG/ML VIAL IM PRN (12:07)
[2021-02-21] MEDS ORDERED: Meperidine HCl/PF 25 MG/ML VIAL SLOW IVP PRN (12:07)
[2021-02-21] MEDS ORDERED: Promethazine HCl 25 MG/ML VIAL SLOW IVP PRN (12:07)
[2021-02-21] MEDS ORDERED: Morphine 10 MG/ML VIAL ONE (12:51)
[2021-02-21] MEDS ORDERED: Fentanyl 100 MCG/2 ML VIAL SLOW IVP PRN (13:54)
[2021-02-21] MEDS ORDERED: Morphine 2 MG/ML VIAL ONE ×3 (14:30→15:15)
[2021-02-21] MEDS: CEFAZOLIN 2 GM in Premix Bag 1 BAG IVPB SCH (16:47)
[2021-02-21] MEDS ORDERED: HYDROcodone/Acetaminophen 7.5/325 mg Tablet ONE (16:57)
[2021-02-21] MEDS: Sodium Chloride 0.9% 1,000 ML IV SCH (20:43)
[2021-02-21] MEDS: Potassium Chloride 10 MEQ TAB PO SCH (20:45)
[2021-02-21] MEDS: Morphine 4 MG/ML VIAL SLOW IVP PRN (20:47)
[2021-02-21] MEDS ORDERED: Loratadine 10 MG TAB PO SCH (21:00)
[2021-02-21] MEDS: HYDROcodone/Acetaminophen 7.5/325 mg Tablet PO PRN (22:57)
[2021-02-21] MEDS: Dronedarone HCl 400 MG TAB PO SCH (23:10)
[2021-02-22] MEDS: Sodium Chloride 0.9% 1,000 ML IV SCH (01:00)
[2021-02-22] MEDS: CEFAZOLIN 2 GM in Premix Bag 1 BAG IVPB SCH (01:51)
[2021-02-22] MEDS: Morphine 4 MG/ML VIAL SLOW IVP PRN (02:02)
[2021-02-22] MEDS: HYDROcodone/Acetaminophen 7.5/325 mg Tablet PO PRN ×2 (04:58→09:29)
[2021-02-22] MEDS ORDERED: diphenhydrAMINE 25 MG CAP PO SCH (05:15)
[2021-02-22] MEDS: Dronedarone HCl 400 MG TAB PO SCH (08:07)
[2021-02-22] MEDS: Potassium Chloride 10 MEQ TAB PO SCH (08:07)
[2021-02-22 08:52] VITALS: BP 139/76; TEMP 99
[2021-02-22] MEDS ORDERED: Lisinopril/Hydrochlorothiazide 20/25 mg Tablet PO SCH (09:00)
[2021-02-22] MEDS ORDERED: Non-Formulary Item 1 EACH (Glucosam/Chondr-Msm1/D3/C/Mang [Glucosamine Chondroitin Comple PO SCH (09:00)
[2021-02-22] MEDS ORDERED: DOCOSAHEXAENOIC ACID PO SCH (09:00)
[2021-02-22] MEDS ORDERED: Zinc Sulfate 220 MG CAP PO SCH (09:00)
[2021-02-22] MEDS ORDERED: Stress 600 With Zinc 1 TAB PO SCH (09:00)
[2021-02-22] MEDS ORDERED: Ascorbic Acid 500 mg Chewable Tablet PO SCH (09:00)
[2021-02-22] MEDS ORDERED: Venlafaxine HCl XR 150 MG CAP PO SCH (09:00)
[2021-02-22] MEDS ORDERED: Dexamethasone 4 mg/ml Vial SLOW IVP SCH (10:00)
== END 2021-02-22 14:08 | disposition home or self-care (01) ==
LOC: SDC 07:43 → T4-B 10:37 → SDC 02-22 14:08
PROVIDERS: ATTEND Surgery
PROC: 01NB0ZZ Release Lumbar Nerve, Open Approach (ICD-10-PCS; principal; 2021-02-21)
DX: M51.16 Intervertebral disc disorders with radiculopathy, lumbar region (principal); Z79.82 Long term (current) use of aspirin; Z79.899 Other long term (current) drug therapy; Z91.048 Other nonmedicinal substance allergy status
CPT/HCPCS: 76000; J0690; J1100; J2270; J2405; J2704; J3010; J3370

== ENCOUNTER 2021-08-14 12:24 | Emergency (ER) | payer BC ==
[2021-08-14] MEDS ORDERED: Ketorolac Tromethamine 30 MG/ML VIAL ONE (14:06)
[2021-08-14] MEDS ORDERED: Acetaminophen 500 MG TAB ONE (14:07)
[2021-08-14] MEDS ORDERED: Diazepam 10 MG/2 ML SYRINGE ONE (14:28)
[2021-08-14] MEDS ORDERED: Dexamethasone 4 MG TAB ONE ×2 (15:16)
== END 2021-08-14 15:24 | disposition home or self-care (01) ==
LOC: ERS 12:24
DX: M54.50 Low back pain, unspecified (principal); I10 Essential (primary) hypertension; I48.91 Unspecified atrial fibrillation; X50.9XXA Other and unspecified overexertion or strenuous movements or postures, initial encounter
CPT/HCPCS: 72131; 96372; J1885; J3360; J8540

== ENCOUNTER 2021-10-05 08:50 | Outpatient (CLI) | payer BC | END 2021-10-05 08:51 | disposition home or self-care (01) | LOC: TBSIIMAG 08:50 | PROVIDERS: ATTEND Surgery | DX: M51.16 Intervertebral disc disorders with radiculopathy, lumbar region (principal); M48.061 Spinal stenosis, lumbar region without neurogenic claudication; Z98.890 Other specified postprocedural states | CPT/HCPCS: 72148 ==

== ENCOUNTER 2022-04-09 12:15 | Outpatient (CLI) | payer BC ==
[2022-04-09 15:07] LABS: Hemoglobin 14.7 g/dL (13.5-17.5); Mean Corpuscular HGB CONC 33.8 g/dL (32.0-36.0); Mean Corpuscular Hemoglobin 30.7 pg (27.0-33.0); Mean Corpuscular Volume 90.8 fl (81.2-95.1); Mean Platelet Volume 10.1 fl (7.4-10.4); Platelet Count 243 10x3/uL (150-450); RBC Distribution Width 13.2 % (11.5-14.5); Red Blood Cell (RBC) Count 4.79 10x6/uL (4.32-5.72); White Blood Cell (WBC) Count 5.4 10x3/uL (3.5-10.5)
[2022-04-09 15:14] LABS: Anion Gap 15 mmol/L (10-20); BUN (Urea Nitrogen) 17 mg/dL (8.4-25.7); Calc. Creatinine Clearance 0 mL/min (70-130); Calcium 9.4 mg/dL (7.8-10.44); Carbon Dioxide 30 mmol/L (22-29); Chloride 101 mmol/L (98-107); Glucose 88 mg/dL (70-105); Potassium 3.8 mmol/L (3.5-5.1); Sodium 142 mmol/L (136-145)
== END 2022-04-09 12:16 | disposition home or self-care (01) ==
LOC: LABBT 12:15
PROVIDERS: ATTEND Specialist
DX: Z01.818 Encounter for other preprocedural examination (principal); Z20.822 Contact with and (suspected) exposure to COVID-19
CPT/HCPCS: 80048; 85027; 93005; 93010; U0003; U0005

== ENCOUNTER 2022-04-12 11:15 | Day surgery (SDC) | payer BC ==
[2022-04-09 14:28] VITALS: BMI 38.9
[2022-04-12] MEDS ORDERED: fentaNYL Citrate/PF 100 MCG/2 ML SYRINGE ONE (13:39)
[2022-04-12] MEDS ORDERED: Famotidine/PF 20 mg/2ml Vial ONE (13:39)
[2022-04-12] MEDS ORDERED: Midazolam HCl 2 mg/2 ml Vial ONE (13:39)
[2022-04-12] MEDS ORDERED: Ondansetron PF 4 MG/2 ML Vial ONE ×2 (13:39→13:54)
[2022-04-12] MEDS ORDERED: Propofol 1,000 MG/100 ML VIAL IV ONE (13:39)
[2022-04-12] MEDS ORDERED: CEFAZOLIN 2 GM VIAL ONE (13:49)
[2022-04-12] MEDS ORDERED: Sodium Chloride 0.9% 100 ML ONE (13:49)
[2022-04-12] MEDS ORDERED: Lidocaine 1% PF 5 ML VIAL ONE (13:54)
[2022-04-12] MEDS ORDERED: PROPOFOL 200 MG/20 ML VIAL ONE (13:54)
[2022-04-12] MEDS ORDERED: Bupivacaine PF 0.5% 30 ML VIAL ONE (14:06)
[2022-04-12] MEDS ORDERED: EPINEPHrine 1 MG/ML AMP ONE (14:06)
[2022-04-12] MEDS ORDERED: HYDROcodone/Acetaminophen 5/325 mg Tablet ONE (16:31)
== END 2022-04-12 17:20 | disposition home or self-care (01) ==
LOC: SDC 11:15
PROVIDERS: ATTEND Specialist
PROC: 00HU3MZ Insertion of Neurostimulator Lead into Spinal Canal, Percutaneous Approach (ICD-10-PCS; principal; 2022-04-12)
PROC: 0JH70BZ Insertion of Single Array Stimulator Generator into Back Subcutaneous Tissue and Fascia, Open Approach (ICD-10-PCS; principal; 2022-04-12)
DX: G89.4 Chronic pain syndrome (principal); M96.1 Postlaminectomy syndrome, not elsewhere classified; M51.16 Intervertebral disc disorders with radiculopathy, lumbar region; M48.062 Spinal stenosis, lumbar region with neurogenic claudication; M17.0 Bilateral primary osteoarthritis of knee; I10 Essential (primary) hypertension; Z79.82 Long term (current) use of aspirin; Z79.899 Other long term (current) drug therapy; Z91.048 Other nonmedicinal substance allergy status
CPT/HCPCS: 72020; 76000; C1713; C1778; C1787; C1820; J0171; J0690; J2250; J2405; J2704; J3490; L8689; S0020; S0028

== ENCOUNTER 2022-12-27 07:47 | Outpatient (CLI) | payer BC | END 2022-12-27 07:48 | disposition home or self-care (01) | LOC: LABBT 07:47 | PROVIDERS: ATTEND Surgery | DX: Z01.810 Encounter for preprocedural cardiovascular examination (principal); M48.061 Spinal stenosis, lumbar region without neurogenic claudication; M54.16 Radiculopathy, lumbar region | CPT/HCPCS: 93005; 93010 ==

== ENCOUNTER 2023-01-01 07:03 | Inpatient (IN) | payer BC ==
[2022-12-27 09:08] LABS: Hemoglobin 13.7 g/dL (13.5-17.5); Mean Corpuscular HGB CONC 33.7 g/dL (32.0-36.0); Mean Corpuscular Hemoglobin 31.4 pg (27.0-33.0); Mean Corpuscular Volume 93.1 fl (81.2-95.1); Mean Platelet Volume 9.6 fl (7.4-10.4); Platelet Count 264 10x3/uL (150-450); Red Blood Cell (RBC) Count 4.36 10x6/uL (4.32-5.72); White Blood Cell (WBC) Count 4.6 10x3/uL (3.5-10.5)
[2022-12-27 09:15] LABS: INR-International Normal Ratio 0.9; PTT 25.2 sec (22.0-33.0); Prothrombin Time 10.3 sec (9.5-12.1)
[2022-12-27 09:20] LABS: Anion Gap 13 mmol/L (10-20); BUN (Urea Nitrogen) 15 mg/dL (8.4-25.7); Calc. Creatinine Clearance 0 mL/min (70-130); Carbon Dioxide 29 mmol/L (22-29); Chloride 101 mmol/L (98-107); Estimated GFR 103; Glucose 81 mg/dL (70-105); Potassium 3.3 mmol/L (3.5-5.1); Sodium 140 mmol/L (136-145)
[~2023-01-01 07:03] MED LIST: Dexmedetomidine 200 MCG/2 ML VIAL ONE; HYDROmorphone 0.5 MG/0.5 ML SYRINGE ONE; SUGAMMADEX SODIUM 200 MG/2 ML VIAL ONE; fentaNYL PF 100 MCG/2 ML SYRINGE ONE
[2023-01-01] MEDS ORDERED: Vancomycin 1 GM VIAL ONE (07:36)
[2023-01-01] MEDS ORDERED: Thrombin 5000 UNITS/5 ML VIAL ONE (07:36)
[2023-01-01] MEDS ORDERED: Sodium Chloride 0.9% 100 ML ONE (08:13)
[2023-01-01] MEDS ORDERED: CEFAZOLIN 2 GM VIAL ONE (08:13)
[2023-01-01] MEDS ORDERED: Ketorolac Tromethamine 30 MG/ML VIAL ONE (08:21)
[2023-01-01] MEDS ORDERED: Rocuronium Bromide 10 MG/ML (10ML VIAL) ONE (08:21)
[2023-01-01] MEDS ORDERED: Dexamethasone 20 MG/5 ML VIAL ONE (08:21)
[2023-01-01] MEDS ORDERED: Ondansetron PF 4 MG/2 ML Vial ONE (08:21)
[2023-01-01] MEDS ORDERED: ePHEDrine 50 MG/ML VIAL ONE (08:21)
[2023-01-01] MEDS ORDERED: PHENYLEPHRINE-NS 100 MCG/ML 10 ML SYRINGE ONE ×2 (08:21→10:47)
[2023-01-01] MEDS ORDERED: Lidocaine 1% PF 5 ML VIAL ONE (08:21)
[2023-01-01] MEDS ORDERED: PROPOFOL 200 MG/20 ML VIAL ONE (08:21)
[2023-01-01] MEDS ORDERED: Metoclopramide HCl 10 MG/2 ML VIAL ONE (08:21)
[2023-01-01] MEDS ORDERED: HYDROcodone/Acetaminophen 10/325 mg Tablet PO PRN (08:55)
[2023-01-01] MEDS ORDERED: Morphine 2 MG/ML VIAL SLOW IVP PRN (08:55)
[2023-01-01] MEDS ORDERED: Acetaminophen 325 MG TAB PO PRN (08:55)
[2023-01-01] MEDS ORDERED: diphenhydrAMINE 25 MG CAP PO PRN (08:55)
[2023-01-01] MEDS ORDERED: Acetaminophen/Codeine 30-300mg Tablet PO PRN (08:55)
[2023-01-01] MEDS ORDERED: Ketorolac Tromethamine 30 MG/ML VIAL IVP PRN (08:57)
[2023-01-01] MEDS ORDERED: Diazepam 5 MG TAB PO PRN (08:57)
[2023-01-01] MEDS ORDERED: Bisacodyl 5 MG TAB PO PRN (08:59)
[2023-01-01] MEDS ORDERED: Polyethylene Glycol 3350 17 GM Packet PO PRN (08:59)
[2023-01-01 09:01] LABS: SARS-CoV-2 NAA Rapid Test Not Detected (NotDetected)
[2023-01-01] MEDS ORDERED: Rocuronium Bromide 50 MG/5 ML VIAL ONE (10:47)
[2023-01-01] MEDS ORDERED: SUGAMMADEX SODIUM 200 MG/2 ML VIAL ONE ×2 (11:31)
[2023-01-01] MEDS ORDERED: HYDROmorphone 2 MG/ML VIAL ONE (11:56)
[2023-01-01] MEDS ORDERED: Lorazepam 1 MG TAB PO PRN (12:29)
[2023-01-01] MEDS ORDERED: Promethazine HCl 12.5 MG in Sodium Chloride 0.9% 50 ML IVPB PRN (12:31)
[2023-01-01] MEDS ORDERED: hydrALAZINE 20 MG/ML VIAL SLOW IVP PRN (12:31)
[2023-01-01] MEDS ORDERED: FENTANYL 50 MCG/ML 1 ML VIAL ONE ×2 (12:50→13:15)
[2023-01-01] MEDS ORDERED: Fentanyl CADD 100 ML IVPB SCH (13:00)
[2023-01-01] MEDS ORDERED: diphenhydrAMINE 50 MG/ML VIAL IM/IV PRN (13:00)
[2023-01-01] MEDS ORDERED: HYDROmorphone 0.5 MG/0.5 ML SYRINGE ONE ×2 (13:00→13:27)
[2023-01-01] MEDS ORDERED: Naloxone HCl 0.4 mg/ml Vial IV PRN (13:00)
[2023-01-01] MEDS ORDERED: Zolpidem Tartrate 5 MG TAB PO PRN (13:00)
[2023-01-01] MEDS ORDERED: CEFAZOLIN 2 GM in Sodium Chloride 0.9% 100 ML IVPB SCH (14:00)
[2023-01-01] MEDS: Sodium Chloride 0.9% 1,000 ML IV SCH ×2 (16:08→19:55)
[2023-01-01] MEDS: Docusate 100 MG CAP PO SCH ×2 (16:09→19:53)
[2023-01-01] MEDS: Dronedarone HCl 400 MG TAB PO SCH (16:23)
[2023-01-01] MEDS: CEFAZOLIN 2 GM in Sodium Chloride 0.9% 100 ML IVPB SCH ×2 (16:23→23:39)
[2023-01-01 16:49] VITALS: BMI 37.3
[2023-01-01] MEDS: diphenhydrAMINE 25 MG CAP PO PRN (19:52)
[2023-01-01] MEDS: Potassium Chloride 10 MEQ TAB PO SCH (19:54)
[2023-01-01] MEDS: Loratadine 10 MG TAB PO SCH (19:55)
[2023-01-01] MEDS ORDERED: POTASSIUM GLUCONATE 90 MG PO SCH (21:00)
[2023-01-02] MEDS: diphenhydrAMINE 25 MG CAP PO PRN (02:05)
[2023-01-02 07:22] LABS: #Monocytes 0.9 thou/uL (0.11-0.59); #Neutrophils 10.2 thou/uL (1.40-6.50); %Basophils 0.1 % (0.0-1.0); %Eosinophils 0.1 % (0.0-10.0); %Lymphocytes 8.2 % (21.0-51.0); %Monocytes 7.2 % (0.0-10.0); %Neutrophils 84.4 % (42.0-75.0); Hemoglobin 11.7 g/dL (14.0-18.0); Mean Corpuscular HGB CONC 33.6 g/dL (32.0-36.0); Mean Corpuscular Hemoglobin 32.7 pg (27.0-31.0); Mean Corpuscular Volume 97.2 fl (78.0-98.0); Mean Platelet Volume 7.3 fL (7.4-10.4); Platelet Count 249 10x3/uL (130-400); RBC Distribution Width 11.8 % (11.5-14.5); Red Blood Cell (RBC) Count 3.59 mill/uL (4.70-6.10); White Blood Cell (WBC) Count 12.1 10x3/uL (4.8-10.8)
[2023-01-02 07:40] LABS: Anion Gap 12 mmol/L (10-20); BUN (Urea Nitrogen) 14 mg/dL (8.4-25.7); Calc. Creatinine Clearance 199 mL/min (70-130); Calcium 8.8 mg/dL (7.8-10.44); Carbon Dioxide 29 mmol/L (22-29); Chloride 103 mmol/L (98-107); Estimated GFR 106; Glucose 99 mg/dL (70-105); Potassium 4.1 mmol/L (3.5-5.1); Sodium 140 mmol/L (136-145)
[2023-01-02] MEDS ORDERED: Non-Formulary Item 1 EACH (Zinc Gluconate [Zinc] 30 MG Tablet) PO SCH (09:00)
[2023-01-02] MEDS ORDERED: SUB SL SCH (09:00)
[2023-01-02] MEDS ORDERED: Non-Formulary Item 1 EACH (Vitamin B Complex [B Complex] 1 TABLET Tablet) PO SCH (09:00)
[2023-01-02] MEDS ORDERED: CYANOCOBALAMIN 1000 MCG SL SCH (09:00)
[2023-01-02] MEDS ORDERED: Non-Formulary Item 1 EACH (Ascorbic Acid [Vitamin C] 1,000 MG Tablet) PO SCH (09:00)
[2023-01-02] MEDS ORDERED: Zinc Gluconate [Zinc] 30 MG Tablet DT SCH (09:00)
[2023-01-02] MEDS ORDERED: [UNRECOGNIZED DRUG - OTHER] SL SCH (09:00)
[2023-01-02] MEDS: CO Q-10 CAPSULE 100 MG PO SCH (09:16)
[2023-01-02] MEDS: Dronedarone HCl 400 MG TAB PO SCH ×2 (09:16→16:57)
[2023-01-02] MEDS: Docusate 100 MG CAP PO SCH ×2 (09:16→21:00)
[2023-01-02] MEDS: Venlafaxine HCl XR 150 MG CAP PO SCH (09:16)
[2023-01-02] MEDS: Cyanocobalamin (Vitamin B-12) 1,000 MCG TAB PO SCH (09:16)
[2023-01-02] MEDS: Ascorbic Acid 500 mg Chewable Tablet PO SCH (09:17)
[2023-01-02] MEDS: CEFAZOLIN 2 GM in Sodium Chloride 0.9% 100 ML IVPB SCH ×3 (09:17→23:17)
[2023-01-02] MEDS: Potassium Chloride 10 MEQ TAB PO SCH ×2 (09:17→21:00)
[2023-01-02] MEDS: Lisinopril/Hydrochlorothiazide 20/25 mg Tablet PO SCH (09:17)
[2023-01-02] MEDS: Multivitamin w/Zinc Stress 1 TAB PO SCH (10:25)
[2023-01-02] MEDS: oxyCODONE 5 MG TAB PO PRN ×3 (10:54→21:02)
[2023-01-02] MEDS: Sodium Chloride 0.9% 1,000 ML IV SCH ×3 (10:55→22:24)
[2023-01-02] MEDS: Ondansetron PF 4 MG/2 ML Vial IVP PRN ×2 (11:55→18:12)
[2023-01-02] MEDS ORDERED: Polyethylene Glycol 3350 17 GM Packet PO PRN (20:54)
[2023-01-02] MEDS: Loratadine 10 MG TAB PO SCH (21:01)
[2023-01-03] MEDS: Promethazine HCl 25 MG/ML VIAL IM PRN ×2 (00:20→11:28)
[2023-01-03] MEDS: Ondansetron PF 4 MG/2 ML Vial IVP PRN (02:34)
[2023-01-03] MEDS: Simethicone Chewable 80 MG TAB PO PRN ×3 (02:48→20:25)
[2023-01-03] MEDS: oxyCODONE 5 MG TAB PO PRN ×3 (05:37→23:45)
[2023-01-03] MEDS ORDERED: Milk Of Magnesia 30 ML UDCUP PO PRN (07:39)
[2023-01-03] MEDS ORDERED: Magnesium Citrate 300 ML BOT PO SCH ×2 (07:45→08:00)
[2023-01-03] MEDS: Docusate 100 MG CAP PO SCH ×2 (08:43→20:25)
[2023-01-03] MEDS: CO Q-10 CAPSULE 100 MG PO SCH (08:43)
[2023-01-03] MEDS: Multivitamin w/Zinc Stress 1 TAB PO SCH (08:44)
[2023-01-03] MEDS: Cyanocobalamin (Vitamin B-12) 1,000 MCG TAB PO SCH (08:44)
[2023-01-03] MEDS: Lisinopril/Hydrochlorothiazide 20/25 mg Tablet PO SCH (08:44)
[2023-01-03] MEDS: Ascorbic Acid 500 mg Chewable Tablet PO SCH (08:44)
[2023-01-03] MEDS: Dronedarone HCl 400 MG TAB PO SCH ×2 (08:44→17:21)
[2023-01-03] MEDS: CEFAZOLIN 2 GM in Sodium Chloride 0.9% 100 ML IVPB SCH ×3 (08:44→23:32)
[2023-01-03] MEDS: Potassium Chloride 10 MEQ TAB PO SCH ×2 (08:44→20:24)
[2023-01-03] MEDS: Venlafaxine HCl XR 150 MG CAP PO SCH (08:44)
[2023-01-03] MEDS: Sodium Chloride 0.9% 1,000 ML IV SCH (09:49)
[2023-01-03] MEDS ORDERED: Fleet Enema 133 ML BOT PR SCH (12:30)
[2023-01-03] MEDS: Diazepam 5 MG TAB PO PRN ×2 (17:20→23:45)
[2023-01-03] MEDS: Loratadine 10 MG TAB PO SCH (20:24)
[2023-01-04] MEDS: Sodium Chloride 0.9% 1,000 ML IV SCH (01:16)
[2023-01-04 06:58] LABS: Anion Gap 11 mmol/L (10-20); BUN (Urea Nitrogen) 10 mg/dL (8.4-25.7); Calc. Creatinine Clearance 226 mL/min (70-130); Calcium 8.4 mg/dL (7.8-10.44); Carbon Dioxide 30 mmol/L (22-29); Chloride 102 mmol/L (98-107); Estimated GFR 110; Glucose 81 mg/dL (70-105); Potassium 3.7 mmol/L (3.5-5.1); Sodium 139 mmol/L (136-145)
[2023-01-04] MEDS: Potassium Chloride 10 MEQ TAB PO SCH (08:32)
[2023-01-04] MEDS: CO Q-10 CAPSULE 100 MG PO SCH (08:32)
[2023-01-04] MEDS: Docusate 100 MG CAP PO SCH (08:32)
[2023-01-04] MEDS: Dronedarone HCl 400 MG TAB PO SCH (08:32)
[2023-01-04] MEDS: Venlafaxine HCl XR 150 MG CAP PO SCH (08:32)
[2023-01-04] MEDS: Ascorbic Acid 500 mg Chewable Tablet PO SCH (08:32)
[2023-01-04] MEDS: Cyanocobalamin (Vitamin B-12) 1,000 MCG TAB PO SCH (08:32)
[2023-01-04] MEDS: oxyCODONE 5 MG TAB PO PRN ×2 (08:33→12:55)
[2023-01-04] MEDS: Diazepam 5 MG TAB PO PRN (08:34)
[2023-01-04] MEDS: Lisinopril/Hydrochlorothiazide 20/25 mg Tablet PO SCH (08:42)
[2023-01-04] MEDS: CEFAZOLIN 2 GM in Sodium Chloride 0.9% 100 ML IVPB SCH (08:43)
[2023-01-04] MEDS: Multivitamin w/Zinc Stress 1 TAB PO SCH (11:30)
[2023-01-04 12:35] VITALS: BP 130/75; TEMP 98.1
== END 2023-01-04 13:38 | disposition home or self-care (01) | DRG 460 ==
LOC: SDC 07:03 → T4-A 09:00 → SDC 01-03 07:00 → T4-A 01-03 07:37
PROVIDERS: ADMIT Surgery; ATTEND Surgery
PROC: 0SG00AJ Fusion of Lumbar Vertebral Joint with Interbody Fusion Device, Posterior Approach, Anterior Column, Open Approach (ICD-10-PCS; principal; 2023-01-01)
PROC: 01NB0ZZ Release Lumbar Nerve, Open Approach (ICD-10-PCS; 2023-01-01)
PROC: 0ST20ZZ Resection of Lumbar Vertebral Disc, Open Approach (ICD-10-PCS; 2023-01-01)
PROC: 3E0U0GB Introduction of Recombinant Bone Morphogenetic Protein into Joints, Open Approach (ICD-10-PCS; 2023-01-01)
DX: M48.062 Spinal stenosis, lumbar region with neurogenic claudication (principal); M54.16 Radiculopathy, lumbar region; Z20.822 Contact with and (suspected) exposure to COVID-19; Z91.048 Other nonmedicinal substance allergy status; Z88.1 Allergy status to other antibiotic agents; Z88.8 Allergy status to other drugs, medicaments and biological substances; G89.4 Chronic pain syndrome; K59.00 Constipation, unspecified
CPT/HCPCS: 36415; 80048; 85025; 85027; 85610; 85730; 86850; 86900; 86901; C1713; C1768; C1776; C1889; J1100; J1170; J1885; J2405; J2550; J2704; J2765; J3010; J3370; J3490; J7050; U0002

== ENCOUNTER 2023-02-11 10:32 | Outpatient (CLI) | payer BC | END 2023-02-11 10:33 | disposition home or self-care (01) | LOC: TBSIIMAG 10:32 | PROVIDERS: ATTEND Surgery | DX: M54.16 Radiculopathy, lumbar region (principal); Z98.890 Other specified postprocedural states | CPT/HCPCS: 72100 ==

== ENCOUNTER 2023-05-03 08:16 | Outpatient (CLI) | payer BC | END 2023-05-03 08:17 | disposition home or self-care (01) | LOC: SCSMRI 08:16 | PROVIDERS: ATTEND Orthopaedic Surgery | DX: S46.012A Strain of muscle(s) and tendon(s) of the rotator cuff of left shoulder, initial encounter (principal); S46.812A Strain of other muscles, fascia and tendons at shoulder and upper arm level, left arm, initial encounter; M19.012 Primary osteoarthritis, left shoulder ==

== ENCOUNTER 2023-06-03 07:47 | Outpatient (CLI) | payer BC ==
[2023-06-03 08:23] LABS: #Basophils 0.1 10x3/uL (0.0-0.2); #Eosinphils 0.3 10x3/uL (0.0-0.5); #Monocytes 0.4 10x3/uL (0.0-1.1); #Neutrophils 3.1 10x3/uL (1.5-8.4); %Basophils 1.2 % (0.0-2.0); %Eosinophils 5.6 % (0.0-6.0); %Lymphocytes 22.8 % (18.0-47.0); %Monocytes 8.5 % (0.0-10.0); %Neutrophils 61.9 % (40.0-75.0); Hematocrit 43.3 % (38.8-50.0); Hemoglobin 14.4 g/dL (13.5-17.5); Mean Corpuscular HGB CONC 33.3 g/dL (32.0-36.0); Mean Corpuscular Volume 90.2 fl (81.2-95.1); Mean Platelet Volume 9.5 fl (7.4-10.4); Platelet Count 279 10x3/uL (150-450); RBC Distribution Width 14.1 % (11.5-14.5)
[2023-06-03 09:26] LABS: Anion Gap 17 mmol/L (10-20); BUN (Urea Nitrogen) 14 mg/dL (8.4-25.7); Calc. Creatinine Clearance 0 mL/min (70-130); Calcium 9.2 mg/dL (7.8-10.44); Carbon Dioxide 26 mmol/L (22-29); Chloride 101 mmol/L (98-107); Estimated GFR 101; Glucose 98 mg/dL (70-105); Sodium 140 mmol/L (136-145)
== END 2023-06-03 07:48 | disposition home or self-care (01) ==
LOC: LABBT 07:47
PROVIDERS: ATTEND Orthopaedic Surgery
DX: Z01.812 Encounter for preprocedural laboratory examination (principal); S46.012A Strain of muscle(s) and tendon(s) of the rotator cuff of left shoulder, initial encounter; M75.22 Bicipital tendinitis, left shoulder
CPT/HCPCS: 80048; 85025

== ENCOUNTER 2023-06-06 07:36 | Day surgery (SDC) | payer BC ==
[2023-06-03 08:12] VITALS: BMI 36.3
[2023-06-06] MEDS ORDERED: Acetaminophen 500 MG TAB ONE (09:51)
[2023-06-06] MEDS ORDERED: Scopolamine 1.5 mg/72 hour Patch ONE (09:51)
[2023-06-06] MEDS ORDERED: Famotidine/PF 20 mg/2ml Vial ONE (09:51)
[2023-06-06] MEDS ORDERED: fentaNYL PF 100 MCG/2 ML SYRINGE ONE (10:40)
[2023-06-06] MEDS ORDERED: Phenylephrine 10 MG/ML VIAL ONE ×2 (10:40→11:19)
[2023-06-06] MEDS ORDERED: Midazolam HCl 2 mg/2 ml Vial ONE (10:51)
[2023-06-06] MEDS ORDERED: Ropivacaine 0.5% HCl/PF (150 MG/30 ML VIAL) ONE (10:51)
[2023-06-06] MEDS ORDERED: fentaNYL 50 mcg/mL 1 mL Vial ONE ×3 (10:51→14:48)
[2023-06-06] MEDS ORDERED: CEFAZOLIN 2 GM VIAL ONE (10:53)
[2023-06-06] MEDS ORDERED: Sodium Chloride 0.9% 100 ML ONE (10:53)
[2023-06-06] MEDS ORDERED: Promethazine HCl 25 MG/ML VIAL IM PRN ×2 (11:00→13:37)
[2023-06-06] MEDS ORDERED: HYDROcodone/Acetaminophen 10/325 mg Tablet PO PRN ×2 (11:00)
[2023-06-06] MEDS ORDERED: Zolpidem Tartrate 5 MG TAB PO PRN (11:00)
[2023-06-06] MEDS ORDERED: traMADol HCl 50 MG TAB PO PRN ×2 (11:00)
[2023-06-06] MEDS ORDERED: Ondansetron PF 4 MG/2 ML Vial IVP PRN (11:00)
[2023-06-06] MEDS ORDERED: Ropivacaine 0.2% 550 ML 550 ML NERVE BLCK SCH (11:00)
[2023-06-06] MEDS ORDERED: Lidocaine 1% PF 5 ML VIAL ONE (11:08)
[2023-06-06] MEDS ORDERED: Rocuronium Bromide 10 MG/ML (10ML VIAL) ONE (11:08)
[2023-06-06] MEDS ORDERED: Ondansetron PF 4 MG/2 ML Vial ONE (11:08)
[2023-06-06] MEDS ORDERED: Ketorolac Tromethamine 30 MG/ML VIAL ONE ×2 (11:08→15:16)
[2023-06-06] MEDS ORDERED: Glycopyrrolate 0.2 MG/ML 5 ML SYRINGE ONE (11:08)
[2023-06-06] MEDS ORDERED: PROPOFOL 200 MG/20 ML VIAL ONE (11:08)
[2023-06-06] MEDS ORDERED: Dexamethasone 20 MG/5 ML VIAL ONE (11:08)
[2023-06-06] MEDS ORDERED: ePHEDrine Sulfate 50 MG/10 ML VIAL ONE (11:08)
[2023-06-06] MEDS ORDERED: EPINEPHrine 1 MG/ML AMP ONE (11:38)
[2023-06-06] MEDS ORDERED: Bupivacaine 0.25% HCL 30 ML VIAL ONE (11:38)
[2023-06-06] MEDS ORDERED: Ketorolac Tromethamine 30 MG/ML VIAL IVP SCH (12:00)
[2023-06-06] MEDS ORDERED: Ondansetron HCl/PF 4 MG/2 ML Vial IVP PRN (13:37)
[2023-06-06] MEDS ORDERED: Promethazine HCl 25 MG/ML VIAL ONE (14:25)
== END 2023-06-06 17:30 | disposition home or self-care (01) ==
LOC: SDC 07:36
PROVIDERS: ATTEND Orthopaedic Surgery
PROC: 0LS44ZZ Reposition Left Upper Arm Tendon, Percutaneous Endoscopic Approach (ICD-10-PCS; principal; 2023-06-06)
PROC: 0PBB4ZZ Excision of Left Clavicle, Percutaneous Endoscopic Approach (ICD-10-PCS; principal; 2023-06-06)
DX: S46.012A Strain of muscle(s) and tendon(s) of the rotator cuff of left shoulder, initial encounter (principal); M75.22 Bicipital tendinitis, left shoulder; M24.112 Other articular cartilage disorders, left shoulder; I10 Essential (primary) hypertension; Z96.651 Presence of right artificial knee joint; Z98.1 Arthrodesis status; Z91.048 Other nonmedicinal substance allergy status; Z79.899 Other long term (current) drug therapy; X58.XXXA Exposure to other specified factors, initial encounter
CPT/HCPCS: A4306; C1713; J0171; J1100; J1885; J2250; J2370; J2405; J2550; J2704; J2795; J3010; J3490; S0020; S0028

== ENCOUNTER 2025-05-18 08:11 | Outpatient (CLI) | payer BC | END 2025-05-18 08:12 | disposition home or self-care (01) | LOC: SCSRAD 08:11 | PROVIDERS: ATTEND Orthopaedic Surgery | DX: M54.50 Low back pain, unspecified (principal); Z98.890 Other specified postprocedural states | CPT/HCPCS: 72100 ==